=== PATIENT | female | born 1955 | race African-American/Black ===

== ENCOUNTER → 2023-10-07 | Day surgery (SDC) | payer MEDICARE, MEDICAID ==
[~2023-10-07] VITALS: Ht 162.6 cm; Wt 97.5 kg
[~2023-10-07] MED LIST: BENA10TA74 PO; CYCL5TAB PO; DEXAMETHASONE 4MG/ML 1ML VIAL ONE; FURO40TA5 PO; HYDR-4009 PO; LACTATED RINGERS 1,000 ML IV SCH; LIDOCAINE HCL 1% 20ML VIAL (Pyxis) INJ ONE; METH-818 PO; MIDAZOLAM HCL 2 MG/2 ML VIAL ONE; ONDANSETRON HCL 4MG/2ML INJ ONE; PROPOFOL 200MG/20ML VIAL IV ONE; SIMETHICONE 40 MG/0.6 ML 15ML ONE
== END | disposition home or self-care (01) ==
LOC: OR 08:00
PROVIDERS: ATTEND Internal Medicine Gastroenterology
DX: Z12.11 Encounter for screening for malignant neoplasm of colon (principal); K64.8 Other hemorrhoids; K63.89 Other specified diseases of intestine; I10 Essential (primary) hypertension; M19.90 Unspecified osteoarthritis, unspecified site; B18.2 Chronic viral hepatitis C; Z86.010 Personal history of colon polyps; Z79.899 Other long term (current) drug therapy; Z98.890 Other specified postprocedural states; Z88.1 Allergy status to other antibiotic agents
CPT/HCPCS: 93005; G0105; J1100; J3490; J2250; J2405; J2704; C1893